=== PATIENT | female | born 1990 | race Caucasian/White ===

== ENCOUNTER 2017-12-01 20:54 | Emergency (ER) | payer BC, OTHER ==
[2017-12-01 21:15] VITALS: BP 139/83
[2017-12-01] MEDS ORDERED: KETOROLAC TROMETHAMINE 30 MG/ML VIAL IM ONE (21:23)
--- NOTE | 2017-12-01 21:39 | ERNOTE ---
Upper Extremity HPI - Narrative Date of Service: 12/01/17 - General Extremities Pain Location: thumb: right Time Seen by Provider: 12/01/17 21:03 Source: patient Exam Limitations: no limitations - Immun/Allergies/Home Medications Immunizations: IMMUNIZATION HX Immunizations Up to Date Yes Allergies/Adverse Reactions: Allergies Allergy/AdvReac Type Severity Reaction Status Date / Time No Known Allergies Allergy Verified 12/01/17 21:09 Home Medications: HOME MEDICATIONS NK [No Home Medication] 12/01/17 [Last Taken Unknown] - History of Present Illness Narrative: Pt. comes in with c/o R distal thumb laceration just prior to arrival when she was using a mandolin at home to slice vegetables. Pt. states that her last tetanus vaccine was two years ago. Pt. denies any SOB, CP, NVD, fever, aggravating factors, numbness, or tingling but states that pressure alleviates the bleeding. Occurred: just prior to arrival Location of Incident: home Severity: mild Method of Injury: Reports: other - laceration Loss of Consciousness: Reports: no loss of consciousness Modifying Factors - (Improves): Reports: other - pressure Modifying Factors - (Worsens): Reports: other - none Associated Symptoms: Denies: tingling, weakness, numbness distally, loss of feeling, loss of power (rt arm), loss of power (lt arm) Other Injuries: Reports: none Prior Treament: Denies: recently seen, treated by physician, recently hospitalized, similar symptoms before, currently on antibiotics Review of Systems - Review of Systems Constitutional: Present: no symptoms reported. Absent: fever, chills, weakness , fatigue, malaise EYE: Present: no symptoms reported ENT: Present: no symptoms reported Respiratory: Present: no symptoms reported. Absent: shortness of breath, cough , wheezing Cardiology: Present: no symptoms reported. Absent: chest pain, palpitations, edema Gastrointestinal/Abdominal: Present: no symptoms reported Genitourinary: Present: no symptoms reported Musculoskeletal: Present: no symptoms reported. Absent: back pain, joint pain Skin: Present: other - lacertaed through the tip of R thumb no flap of skin open into sub cutaneous no muscle or tendon involvement. Neurological: Present: no symptoms reported. Absent: headache, dizziness/light- headedness, numbness, tingling Endocrine: Present: no symptoms reported Hematologic/Lymphatic: Present: no symptoms reported All Other Systems: All systems neg except as marked - Patient's Past Medical History Patient History - Medical: No pertinent hx Patient History - Cardiac/Respiratory: No pertinent hx Patient History - Cancer: No Hx of Cancer Patient History - Surgical Procedures: No surgical history Patient History - Other: None - Social History Living Situations: home Psych History: No pertinent hx Smoking Status: Never smoker Alcohol Use: occasionally Drug Use: none - Immunizations Immunizations Up to Date: Yes Physical Exam - Physical Exam General Appearance: Present: wd/wn, alert, no apparent distress Head Exam: Present: normal inspection, no evidence of injury, no tenderness w palpation Eye Exam: Normal inspection: bilateral Respiratory: Present: no respiratory distress, normal breath sounds, no accessory muscle use, chest nontender, lungs clear Cardiovascular/Chest: Present: regular rate, rhythm, no murmur, normal peripheral pulses Extremity Exam: Present: normal range of motion, no edema, other - tenderness over wound, open laceration involving entire tip of R thumb area 1cm x 0.5 cm unable to suture Neurological Exam: Present: alert, oriented, normal mood/affect, no motor/ sensory deficits Skin Exam: Present: normal color, warm/dry. Absent: pallor, skin rash ED Progress - Date and Time Seen: Date and Time: 12/01/17 21:38 Applied surgicel to wound and bleeding stopped. Applied sterile dressing. - Vital Signs Patient's Vital Signs:: I have reviewed the patient's vital signs. Vital Signs: Vital Signs 12/01/17 21:00 Temperature 36.4 C L Pulse Rate 89 Respiratory 16 Rate Blood Pressure 139/83 O2 Sat by Pulse 98 Oximetry - Progress/Reassessment Progress:: Improved Departure Clinical Impression: Laceration - Departure Disposition: Home self-care Condition: Good Instructions: Nonsutured Laceration Care, Form - Excuse from Work, School, or Physical Activity Additional Instructions: Please change outer dressing daily and follow up with your primary provider for any signs of infection. Referrals: Marya Zeng MD [Primary Care Provider] -
[2017-12-01] MEDS ORDERED: KETOROLAC TROMETHAMINE 30 MG/ML VIAL ONE (21:41)
== END 2017-12-01 21:48 | disposition home or self-care (01) ==
LOC: ER 20:54
DX: S61.011A Laceration without foreign body of right thumb without damage to nail, initial encounter (principal); W27.4XXA Contact with kitchen utensil, initial encounter; Y92.009 Unspecified place in unspecified non-institutional (private) residence as the place of occurrence of the external cause; Y93.G1 Activity, food preparation and clean up